=== PATIENT | male | born 1980 | race Two or more races ===

== ENCOUNTER 2024-11-14 22:43 | Emergency (ER) | payer MEDICAID, SELFPAY ==
[2024-11-14 22:44] VITALS: BMI 34.2
[2024-11-14 22:54] VITALS: BP 155/114; BP 168/114; PULSE 107; RESP 20; TEMP 36.9; O2SAT 97
[2024-11-14] MEDS: DEXAMETHASONE SOD PHOS INJ 10 MG/ML VIAL IM (23:15)
--- NOTE | 2024-11-15 00:14 | PD.EDEYE ---
ED Eye Problem RME/HPI General Chief complaint: Eye Problems Stated complaint: BILAT EYE PAIN/IRRITATION Time Seen by Provider: 11/14/24 22:59 Arrival date/time: 11/14/24 22:43 This is a case of a 44-year-old male with no medical history came in in the emergency room due to bilateral eye irritation redness and discharge which swelling on both upper and lower eyelid patient denies any injury or trauma patient denies any blurring of vision denies any eye pain patient is not using contact lenses patient also noted to have red rashes around the periorbital area and forehead no other symptoms noted Limitations: no limitations Related Data Previous Rx's ?Medication ?Instructions ?Recorded methylprednisolone 4 mg tablets in See Rx Instructions .Route 01/30/21 a dose pack (Medrol (Darin)) .COMPLEX #21 tabs doxycycline monohydrate 100 mg 100 mg PO BID 10 days #20 caps 11/14/24 capsule hydrocortisone 1 % topical cream 1 applic topical BID 2 weeks 11/14/24 #28.35 grams [id number] 3.5 1 drp ophthalmic (eye) Q6H 7 days 11/14/24 mg/mL-10,000 unit/mL-0.1% eye #15 mL drops (Maxitrol) Allergies Allergy/AdvReac Type Severity Reaction Status Date / Time No Known Allergies Allergy Verified 11/14/24 22:49 Review of Systems Review of Systems Systems Reviewed: All systems reviewed, normal except as documented Constitutional Constitutional: Reports system reviewed and no additional complaints, except as documented, Reports as per HPI, Denies chills and Denies fever(s) Eyes Eyes: Reports system reviewed and no additional complaints, except as documented, Reports as per HPI, Denies blind spots, Denies blurry vision, Denies change in vision, Denies decreased night vision, Denies diplopia, Reports eye discharge, Denies dry eyes, Denies exophthalmos, Denies floaters, Reports irritation, Reports itchy eyes, Denies loss of peripheral vision, Denies loss of vision, Denies other visual disturbances, Denies eye pain, Denies photophobia, Denies requires corrective lenses, Denies seeing flashes, Denies spots in vision and Denies tunnel vision ENT Ears, Nose, Mouth, and Throat: Reports system reviewed and no additional complaints, except as documented and Reports as per HPI Cardiovascular Cardiovascular: Reports system reviewed and no additional complaints, except as documented and Reports as per HPI Respiratory Respiratory: Reports system reviewed and no additional complaints, except as documented and Reports as per HPI Gastrointestinal Gastrointestinal: Reports system reviewed and no additional complaints, except as documented and Reports as per HPI Musculoskeletal Musculoskeletal: Reports system reviewed and no additional complaints, except as documented and Reports as per HPI Integumentary/Breasts Skin/Breast: Reports other (facial rash) Neurologic Neurologic: Reports system reviewed and no additional complaints, except as documented, Reports as per HPI and Denies loss of vision Allergic/Immunologic Allergic/Immunologic: Reports itchy eyes Past Medical History Social History SMOKING STATUS: Current every day smoker ED Exam General Limitations: Present no limitations General appearance: Present alert, in no apparent distress and other (Patient is awake alert oriented not in distress nontoxic looking well-hydrated well-nourished) Head Head exam: Present atraumatic, normocephalic and normal inspection Eye Eye exam: Present normal appearance, PERRL, EOMI and other (PERRL EOM intact noted bilateral conjunctivitis no subconjunctival hemorrhage noted both upper eyelid redness swelling discharge suggestive of blepharitis no periorbital cellulitis no pappiledema no hyphema no FB) ENT ENT exam: Present normal exam, normal oropharynx and mucous membranes moist Neck Neck exam: Present normal inspection, full ROM and trachea midline Chest Chest inspection: Present normal inspection and symmetric chest wall rise Respiratory Respiratory exam: Present normal lung sounds bilaterally; Absent respiratory distress, wheezes, stridor, accessory muscle use or prolonged expiratory phase Cardiovascular Cardiovascular exam: Present regular rate, normal rhythm and normal heart sounds; Absent bradycardia, tachycardia, irregular rhythm, systolic murmur or diastolic murmur Abdominal Exam Abdominal exam: Present soft and normal bowel sounds; Absent distention, tenderness, guarding, rebound, rigidity, diminished bowel sounds, hyperactive bowel sounds, hypoactive bowel sounds or organomegaly Extremities Exam Extremities exam: Present normal inspection and full ROM Back Exam Back exam: Present normal inspection and full ROM Neurological Exam Neurological exam: Present alert, oriented X3, CN II-XII intact, normal gait and reflexes normal; Absent motor sensory deficit Psychiatric Psychiatric exam: Present normal affect and normal mood Skin Skin exam: Present warm, dry, intact, normal color and other (Noted scaly red maculopapular rashes on the forehead and both periorbital areas suggestive of seborrheic dermatitis) Course Quality Measures none Orders Category Date Time Status Dexamethasone Inj [Decadron Inj] Med 11/14/24 23:02 Discontinued 10 mg IM X1 ONE DiphenhydrAMINE [Benadryl] Med 11/14/24 23:02 Discontinued 25 mg PO X1 ONE Vital Signs Vital signs: Vital Signs Temperature 98.4 F 11/14/24 22:54 Pulse Rate 107 H 11/14/24 22:54 Respiratory Rate 20 11/14/24 22:54 Blood Pressure 155/114 H 11/14/24 22:54 Pulse Oximetry (%) 97 11/14/24 22:54 Oxygen Delivery Method Room Air 11/14/24 22:54 Patient is afebrile not tachycardic not tachypneic BP noted to be 155/114 I rechecked the BP by myself and noted to be 125/85 not hypoxic oxygen saturation is 97% in room air Eye MDM Narrative MDM Narrative:: This is a case of a 44-year-old male with no medical history came in in the emergency room due to bilateral eye irritation redness and discharge which swelling on both upper and lower eyelid patient denies any injury or trauma patient denies any blurring of vision denies any eye pain patient is not using contact lenses patient also noted to have red rashes around the periorbital area and forehead no other symptoms noted patient denies any injury or trauma physical examination patient is awake alert oriented not in distress not toxic looking eye exam showed PERRL EOM intact noted bilateral conjunctivitis no subconjunctival hemorrhage noted both upper eyelid redness swelling discharge suggestive of blepharitis no periorbital cellulitis no pappiledema no hyphema no FB also noted to have a maculopapular red scaly rashes on the forehead and periorbital area no periorbital cellulitis suggestive of seborrheic dermatitis patient was given Benadryl and dexamethasone here in the emergency room based on my physical examination and history patient seems send suggestive of conjunctivitis and possible blepharitis this patient was given a Maxitrol to be applied to both eyes and doxycycline for blepharitis warm compresses advised patient was also given hydrocortisone cream to be applied on the face except both eyes patient was advised to see a microstrategy bi developer for dermatitis or any worsening symptoms or any emergent concern return precaution to the emergency room immediately or call 911 warm compresses to both eyes is also advised Patient was discharged with comfortable condition walking with stable gait. Patient verbalized no further complains explained diagnosis and answered patient question. Patient is comfortable with the proposed management plan including the need to follow up with his/her primary care physician and any specialist if applicable Discussed patient for any urgent condition or worsening sx, He/She needed to go to emergency room immediately or call 911. Patient acknowledge the responsibility to follow up as instructed and to monitor her/his symptoms. For any persistence of the symptoms for more than 3-5 days return precaution advised. Discussed the result of the test and was given printed discharge instruction Patient data External records reviewed:: [facility] previous records Clinical information provided by:: patient Social determinants that could affect healthcare access:: none Patient has the following chronic illnesses:: None How is presenting disease/condition affected by chronic disease/condition?: no chronic disease Evaluation data The following diagnostics were reviewed and interpreted by me:: other (specify) Lab and/or radiology exams considered but not ordered:: None Interpretation Summary: None Medications / Prescriptions Medications or Prescriptions considered but not ordered:: Given Medication administrations:: Medication Administration History Discontinued Medications Dexamethasone Sodium Phosphate (Dexamethasone Sod Phos Inj 10 Mg/Ml Vial) 10 mg IM X1 ONE Stop: 11/14/24 23:03 Last Admin: 11/14/24 23:15 Dose: 10 mg Documented By: BD Diphenhydramine HCl (Diphenhydramine 25 Mg Capsule) 25 mg PO X1 ONE Stop: 11/14/24 23:03 Last Admin: 11/14/24 23:14 Dose: 25 mg Documented By: BD Given Consultations Consultation(s) initiated? (list below): No Diagnosis Eye Problem Differential Diagnosis: conjunctivitis, periorbital cellulitis, subconjunctival hemorrhage and other (Blepharitis) Most likely diagnosis given after review of the tests above:: Conjunctivitis blepharitis Admission Indicated Admission indicated?: not indicated Explain why admission is indicated or not indicated:: Not indicated Admission Request Was there a request for admission?: No Admission Attestation Admission request attestation: Not indicated Disposition Plan Disposition Plan: Discharge Discharge Attestation Discharge Attestation: The patient and all family members were given an opportunity to ask questions and understood the discharge instructions. Discharge instructions specifically effects, indications for sooner follow up or return to the emergency department, and the expected course of current diagnosis. Patient condition: Stable Discharge Plan Plan Patient Disposition: HOME (Self Care) Patient condition on transfer: Stable Prescriptions/Referrals Prescriptions/Med Rec: New neomycin-polymyxin B-dexameth [Maxitrol] 3.5mg/mL-10,000 unit/mL-0.1 % drops,suspension 1 drp ophthalmic (eye) Q6H 7 Days Qty: 15 0RF Rx Instructions: both eyes doxycycline monohydrate 100 mg capsule 100 mg PO BID 10 Days Qty: 20 0RF hydrocortisone 1 % cream 1 applic topical BID 14 Days Qty: 28.35 0RF Rx Instructions: apply only on the face not inside the eye No Action methylprednisolone [Medrol (Darin)] 4 mg tablets,dose pack See Rx Instructions .Route .COMPLEX Qty: 21 0RF Rx Instructions: 1 dose pack as directed Problem List Clinical Impression: Blepharitis, Dermatitis, seborrheic, Conjunctivitis of both eyes Patient/Caregiver Discharge Instructions Education Materials: Understanding Seborrheic Dermatitis, ED Blepharitis, ED Conjunctivitis, Nonspecific Additional Instructions: Follow-up with your primary care physician in 2 days for reevaluation and to be referred to microstrategy bi developer for further evaluation and treatment of your facial seborrheic dermatitis recurrence persistent worsening symptoms or any emergent concern call 911 or go to the nearest emergency room use hypoallergenic soap and laundry soap do not apply hydrocortisone inside the eye only on the affected area apply warm compress as needed clean your eye with clean cloth and water Print Language: Lao Stand Alone Forms: Deanne Award Info., Patient Portal Info Letter PA/DIPESH Supervising Physician CLINT/DIPESH Supervising Physician: dr martin
== END 2024-11-14 23:18 | disposition home or self-care (01) ==
PROVIDERS: Emergency Provider Family Medicine
DX: H01.006 Unspecified blepharitis left eye, unspecified eyelid (principal); H01.003 Unspecified blepharitis right eye, unspecified eyelid; L21.9 Seborrheic dermatitis, unspecified; H10.9 Unspecified conjunctivitis; F17.200 Nicotine dependence, unspecified, uncomplicated
CPT/HCPCS: 96372; 99282; J1100; A9270